=== PATIENT | female | born 1950 | race Caucasian/White ===

== ENCOUNTER → 2016-11-02 | Outpatient (CLI) | payer MEDICARE | END | disposition home or self-care (01) | LOC: CFH 10:23 | PROVIDERS: ATTEND Genetic Counselor, MS | DX: Z12.31 Encounter for screening mammogram for malignant neoplasm of breast (principal); Z13.820 Encounter for screening for osteoporosis | CPT/HCPCS: 77081; G0202 ==

== ENCOUNTER → 2016-11-13 | Outpatient (CLI) | payer MEDICARE | END | disposition home or self-care (01) | LOC: CFH 09:02 | PROVIDERS: ATTEND Genetic Counselor, MS | DX: R92.0 Mammographic microcalcification found on diagnostic imaging of breast (principal); R92.2 Inconclusive mammogram | CPT/HCPCS: G0206-LT ==

== ENCOUNTER → 2017-11-29 | Outpatient (CLI) | payer MEDICARE | LOC: CFH 10:10 | PROVIDERS: ATTEND Genetic Counselor, MS | DX: Z12.31 Encounter for screening mammogram for malignant neoplasm of breast (principal) | CPT/HCPCS: 77063; 77067 ==

== ENCOUNTER 2019-02-27 09:33 | Outpatient (CLI) | payer MEDICARE | END 2019-02-27 23:59 | disposition home or self-care (01) | LOC: CVU 09:33 | PROVIDERS: ATTEND Internal Medicine Cardiovascular Disease | DX: I08.8 Other rheumatic multiple valve diseases (principal); I48.2 Chronic atrial fibrillation; I27.21 Secondary pulmonary arterial hypertension; I10 Essential (primary) hypertension; Z87.891 Personal history of nicotine dependence | CPT/HCPCS: C8929; Q9957 ==

== ENCOUNTER → 2020-05-24 | Outpatient (CLI) | payer MEDICARE | END | disposition home or self-care (01) | LOC: CFH 13:43 | PROVIDERS: ATTEND Genetic Counselor, MS | DX: Z12.31 Encounter for screening mammogram for malignant neoplasm of breast (principal) | CPT/HCPCS: 77063; 77067 ==

== ENCOUNTER 2020-07-16 11:02 | Day surgery (SDC) | payer MEDICARE ==
[~2020-07-16] VITALS: Ht 167.6 cm; Wt 145.0 kg
[~2020-07-16 11:02] MED LIST: AMLO-211 PO; CHOL10003 PO; HYDR25TA6 PO; LOSA100T14 PO; METO-95 PO; RIVA20TA PO
[2020-07-16] MEDS ORDERED: CHLORHEXIDINE 15 ML UDC ONE (11:42)
[2020-07-16] MEDS ORDERED: CHLORHEXIDINE 15 ML UDC MM ONE (12:00)
[2020-07-16] MEDS ORDERED: LACTATED RINGERS 1,000 ML IV SCH (12:00)
[2020-07-16] MEDS ORDERED: PROPOFOL 10 MG/ML, 50ML ONE (13:16)
== END 2020-07-16 15:35 | disposition home or self-care (01) ==
LOC: OUT 11:02
PROVIDERS: ATTEND Internal Medicine Geriatric Medicine
DX: R19.5 Other fecal abnormalities (principal); D12.3 Benign neoplasm of transverse colon; I10 Essential (primary) hypertension; I48.91 Unspecified atrial fibrillation; M19.90 Unspecified osteoarthritis, unspecified site; D68.9 Coagulation defect, unspecified; E66.01 Morbid (severe) obesity due to excess calories; Z68.43 Body mass index [BMI] 50.0-59.9, adult; Z79.01 Long term (current) use of anticoagulants; Z79.899 Other long term (current) drug therapy; Z86.010 Personal history of colon polyps; Z87.891 Personal history of nicotine dependence; Z80.59 Family history of malignant neoplasm of other urinary tract organ; Z82.49 Family history of ischemic heart disease and other diseases of the circulatory system
CPT/HCPCS: 45380; 88305; J2704; J7120

== ENCOUNTER → 2020-11-05 | Outpatient (CLI) | payer MEDICARE | END | disposition home or self-care (01) | LOC: CVU 12:25 | PROVIDERS: ATTEND Internal Medicine Cardiovascular Disease | DX: I08.1 Rheumatic disorders of both mitral and tricuspid valves (principal); I27.21 Secondary pulmonary arterial hypertension | CPT/HCPCS: C8929; Q9957 ==